=== PATIENT | male | born 1970 | race American Indian/Alaskan Native ===

== ENCOUNTER 2017-12-19 01:44 | Emergency (ER) | payer OTHER ==
[2017-12-19 01:44] VITALS: BMI 24.3
[2017-12-19 02:28] VITALS: BP 115/57; PULSE 90; RESP 18; TEMP 98.5; O2SAT 98
--- NOTE | 2017-12-19 02:33 | ED PDOC ---
Arrival/HPI - General Chief Complaint: Cough, Cold, Congestion Time Seen by Provider: 12/19/17 01:49 Historian: Patient - History of Present Illness Narrative History of Present Illness (Text): 12/19/17 02:33 47 year old male, whose past medical history includes diabetes, hypertension, and hypercholesterolemia, presents to the emergency department complaining of cold symptoms, runny nose minimal productive cough with clear sputum for the past 3 days. Patient states he feels like his airway is inflamed. Patient admits to being a daily cigarette smoker. Patient has almost completed his Zpack antibiotics. Patient denies any fever, chills, shortness of breath, nausea , vomiting, diarrhea, urinary symptoms, back pain, neck pain, headache, dizziness, or any other complaints. PMD: Dr. Akers Time/Duration: Other (3 days) Symptom Onset: Gradual Symptom Course: Unchanged Activities at Onset: Light Context: Home Past Medical History - Provider Review Nursing Documentation Reviewed: Yes - Infectious Disease Hx of Infectious Diseases: None - Cardiac Hx Hypertension: Yes - Endocrine/Metabolic Hx Diabetes Mellitus Type 2: Yes - Psychiatric Hx Substance Use: No - Suicidal Assessment Feels Threatened In Home Enviroment: No Family/Social History - Physician Review Nursing Documentation Reviewed: Yes Family/Social History: No Known Family HX Smoking Status: Heavy Smoker > 10 Cigarettes Daily Hx Alcohol Use: No Hx Substance Use: No Allergies/Home Meds Allergies/Adverse Reactions: Allergies No Known Allergies Allergy (Unverified 12/19/17 02:02) Home Medications: Home Meds Medication Instructions Recorded Confirmed Lisinopril 20 mg PO DAILY 05/12/14 12/19/17 Atorvastatin [Lipitor] 20 mg PO HS 12/19/17 12/19/17 Cyclobenzaprine [Flexeril] 10 mg PO BID 12/19/17 12/19/17 MetFORMIN [glucoPHAGE] 1,000 mg PO BID 12/19/17 12/19/17 SITagliptin [Januvia] 100 mg PO DAILY 12/19/17 12/19/17 Review of Systems - Physician Review All systems were reviewed & negative as marked: Yes - Review of Systems Constitutional: absent: Fevers, Other (Chills) ENT: Rhinorrhea Respiratory: Cough, Sputum. absent: SOB Cardiovascular: Chest Pain (burning chest discomfort wh coughing and deep breaths) Gastrointestinal: absent: Diarrhea, Nausea, Vomiting Genitourinary Male: absent: Dysuria, Frequency, Hematuria Musculoskeletal: absent: Back Pain, Neck Pain Neurological: absent: Headache, Dizziness Physical Exam Vital Signs Reviewed: Yes Vital Signs Temp Pulse Resp BP Pulse Ox 12/19/17 02:05 98.5 F 90 18 115/57 L 98 Temperature: Afebrile Blood Pressure: Normal Pulse: Regular Respiratory Rate: Normal Appearance: Positive for: Well-Appearing, Non-Toxic, Comfortable Pain Distress: None Mental Status: Positive for: Alert and Oriented X 3 - Systems Exam Head: Present: Atraumatic, Normocephalic Pupils: Present: PERRL Extroacular Muscles: Present: EOMI Conjunctiva: Present: Normal Mouth: Present: Moist Mucous Membranes Pharnyx: Present: ERYTHEMA (Mild erythema to the posterior Pharnyx) Nose (Internal): Present: Rhinorrhea, Other (Nasal Congestion) Neck: Present: Normal Range of Motion Respiratory/Chest: Present: Clear to Auscultation, Good Air Exchange. No: Respiratory Distress, Accessory Muscle Use Cardiovascular: Present: Regular Rate and Rhythm, Normal S1, S2. No: Murmurs Abdomen: No: Tenderness, Distention, Peritoneal Signs Back: Present: Normal Inspection Upper Extremity: Present: Normal Inspection. No: Cyanosis, Edema Lower Extremity: Present: Normal Inspection. No: Edema Neurological: Present: GCS=15, CN II-XII Intact, Speech Normal Skin: Present: Warm, Dry, Normal Color. No: Rashes Psychiatric: Present: Alert, Oriented x 3, Normal Insight, Normal Concentration Medical Decision Making ED Course and Treatment: 12/19/17 02:35 Impression: 47 year old male presents complaining of cold symptoms, runny nose minimal productive cough with sputum, and burning chest discomfort when coughing and deep breaths for the past 3 days . Plan: -- Chest X-ray -- Robitussin w/Codeine -- Influenza A B -- Reassess and disposition Progress Notes: 12/19/17 02:59 CXR Impression: As read by me, no acute process. - Lab Interpretations Lab Results: Lab Results 12/19/17 03:00: Influenza Typ A,B (EIA) Negative for flu a/b - RAD Interpretation Radiology Orders: 12/19/17 02:37 CHEST PORTABLE [RAD] Stat - Medication Orders Current Medication Orders: Discontinued Medications Acetaminophen (Tylenol 325mg Tab) 650 mg PO STAT STA Stop: 12/19/17 04:24 Last Admin: 12/19/17 04:34 Dose: 650 mg MAR Pain/Vitals Document 12/19/17 04:34 JOGiuseppe (Rec: 12/19/17 04:34 [id number] [id number]) Pain Reassessment Is This A Pain ReAssessment? No Sleep Is patient sleeping during reassessment? No Presence of Pain Presence of Pain Yes Pain Scale Used Pain Scale Used Numeric Location Pain Location Body Electric Range Servicer Intensity 5 Scale Used Numeric Guaifenesin/Codeine Phosphate (Robitussin W/Codeine) 5 ml PO ONCE ONE Stop: 12/19/17 02:42 Last Admin: 12/19/17 03:08 Dose: 5 ml - Scribe Statement The provider has reviewed the documentation as recorded by the Coreen Sommer Provider Scribe Attestation: All medical record entries made by the Scribe were at my direction and personally dictated by me. I have reviewed the chart and agree that the record accurately reflects my personal performance of the history, physical exam, medical decision making, and the department course for this patient. I have also personally directed, reviewed, and agree with the discharge instructions and disposition. Disposition/Present on Arrival - Present on Arrival Any Indicators Present on Arrival: No History of DVT/PE: No History of Uncontrolled Diabetes: No Urinary Catheter: No History of Decub. Ulcer: No History Surgical Site Infection Following: None - Disposition Have Diagnosis and Disposition been Completed?: Yes Diagnosis: Bronchitis Disposition: HOME/ ROUTINE Disposition Time: 04:16 Patient Plan: Discharge Condition: GOOD Discharge Instructions (ExitCare): Acute Bronchitis, Adult (DC) Additional Instructions: Take meds as prescribed/no smoking/follow up with your doctor this week Prescriptions: Amoxicillin/Clavulanate [Augmentin 875 MG-125 MG] 1 tab PO BID #20 tab Promethazine/Codeine [Codeine/Promethazine 10 MG/5 Ml-6.25 MG/5 Ml] 5 ml PO Q6 PRN #8 oz PRN Reason: Cough Forms: [facility] (Ukrainian), WORK NOTE
[2017-12-19] MEDS ORDERED: guaiFENesin-Codeine 100-10mg/5ml Syrup (5 ml) UD PO ONE (02:41)
--- NOTE | 2017-12-19 08:31 | RAD ---
PROCEDURE: CHEST RADIOGRAPH, 1 VIEW HISTORY: cough COMPARISON: None available. FINDINGS: LUNGS: Clear. PLEURA: No pneumothorax or pleural fluid seen. CARDIOVASCULAR: Normal. OSSEOUS STRUCTURES: No significant abnormalities. VISUALIZED UPPER ABDOMEN: Normal. OTHER FINDINGS: None. IMPRESSION: No active disease.
== END 2017-12-19 04:35 | disposition home or self-care (01) ==
LOC: ED 01:44
DX: J40 Bronchitis, not specified as acute or chronic (principal); I10 Essential (primary) hypertension; E11.9 Type 2 diabetes mellitus without complications; E78.00 Pure hypercholesterolemia, unspecified; F17.210 Nicotine dependence, cigarettes, uncomplicated